=== PATIENT | female | born 1970 | race American Indian/Alaskan Native ===

== ENCOUNTER 2019-09-03 14:14 | Emergency (ER) | payer SELFPAY ==
[2019-09-03 16:19] VITALS: BP 130/72
--- NOTE | 2019-09-03 16:52 | XRay Report ---
RIGHT ANKLE 2 VIEWS INDICATION / CLINICAL INFORMATION: fall. COMPARISON: None available. FINDINGS: No fracture, dislocation or soft tissue swelling is seen within the right ankle. 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 Signer Name: Marques Tineo MD Signed: 09/03/2019 4:47 PM Workstation Name: [id number]
--- NOTE | 2019-09-03 17:43 | Emergency Department Report ---
ED Lower Extremity HPI - General Chief Complaint: Extremity Problem,Nontraumatic Stated Complaint: POSS BROKEN RIGHT FOOT Time Seen by Provider: 09/03/19 17:00 Source: patient Mode of arrival: Ambulatory Limitations: No Limitations - History of Present Illness MD Complaint: ankle injury, foot injury -: Gradual, days(s), week(s) Injury: Ankle: Right Place: home Severity: mild Worsens With: weight bearing Context: other (unsure of mechanism) Associated Symptoms: swelling, unable to bear weight - Related Data Previous Rx's Medication Instructions Recorded Last Taken Type predniSONE [Deltasone] 50 mg PO QDAY #7 tab 09/03/19 Unknown Rx traMADoL [Ultram] 50 mg PO Q6HR PRN #14 tablet 09/03/19 Unknown Rx Allergies Allergy/AdvReac Type Severity Reaction Status Date / Time No Known Allergies Allergy Verified 09/03/19 14:19 ED Review of Systems ROS: Stated complaint: POSS BROKEN RIGHT FOOT Other details as noted in HPI Comment: All other systems reviewed and negative ED Past Medical Hx - Past Medical History Previous Medical History?: No Hx Hypertension: Yes - Surgical History Past Surgical History?: No - Social History Smoking Status: Never Smoker Substance Use Type: None - Medications Home Medications: Home Medications Medication Instructions Recorded Confirmed Last Taken Type predniSONE [Deltasone] 50 mg PO QDAY #7 tab 09/03/19 Unknown Rx traMADoL [Ultram] 50 mg PO Q6HR PRN #14 tablet 09/03/19 Unknown Rx ED Physical Exam - General Limitations: No Limitations General appearance: alert, in no apparent distress - Head Head exam: Present: atraumatic, normocephalic - Eye Eye exam: Present: normal appearance - ENT ENT exam: Present: mucous membranes moist - Neck Neck exam: Present: normal inspection - Respiratory Respiratory exam: Present: normal lung sounds bilaterally. Absent: respiratory distress - Cardiovascular Cardiovascular Exam: Present: regular rate, normal rhythm. Absent: systolic murmur, diastolic murmur, rubs, gallop - GI/Abdominal GI/Abdominal exam: Present: soft, normal bowel sounds - Extremities Exam Extremities exam: Present: normal inspection, tenderness - Expanded Lower Extremity Exam Right Hip exam: Absent: abrasion Upper Leg exam: Present: normal inspection, full ROM Knee exam: Present: normal inspection, full ROM Ankle exam: Present: tenderness, swelling. Absent: laceration, ecchymosis, dislocation, erythema Foot/Toe exam: Present: tenderness - Back Exam Back exam: Present: normal inspection - Neurological Exam Neurological exam: Present: alert, oriented X3 - Psychiatric Psychiatric exam: Present: normal affect, normal mood - Skin Skin exam: Present: warm, dry, intact, normal color. Absent: rash ED Course Vital Signs 09/03/19 16:17 Temperature 98.6 F Pulse Rate 91 H Respiratory 18 Rate Blood Pressure 130/72 Blood Pressure 130/72 [Right] O2 Sat by Pulse 99 Oximetry ED Lower Extremity MDM - Radiology Data Radiology results: report reviewed Referring Physician:ED DOCPatient Name:WANG STREETERPatient ID:[id number] of :[id number]:FemaleAccession:[id number] Date:3160-80-97Aeiqsc Status:Finalized Findings [facility] [address] [place] [address] XRay Report Signed Patient: WANG STREETER MR#: [id number] 3 : 1970 Acct:[id number] Age/Sex: 49 / F ADM Date: 09/03/19 Loc: ED Attending Dr: Ordering Physician: FAMILIA CONROY MD Date of Service: 09/03/19 Procedure(s): XR ankle 2V RT Accession Number(s): [id number] cc: FAMILIA CONROY MD Fluoro Time In Minutes: RIGHT ANKLE 2 VIEWS INDICATION / CLINICAL INFORMATION: fall. COMPARISON: None available. FINDINGS: No fracture, dislocation or soft tissue swelling is seen within the right ankle. Moderate degenerative arthrosis is seen within the talonavicular and naviculocuneiform joints with mild degenerative arthrosis of tibiotalar joint. Signer Name: Marques Tineo MD Signed: 09/03/2019 4:47 PM Workstation Name: [id number] Transcribed By: TL Dictated By: Marques Tineo MD Electronically Authenticated By: Marques Tineo MD Signed Date/Time: 09/03/191646 DD/ 46 TD/TT: - Medical Decision Making Referring Physician:ED DOCPatient Name:WANG STREETERPatient ID:[id number] of :[id number]:FemaleAccession:[id number] Date:1050-03-22Emynez Status:Finalized Findings [facility] [address] [place] [address] XRay Report Signed Patient: WANG STREETER MR#: [id number] 3 : 1970 Acct:[id number] Age/Sex: 49 / F ADM Date: 09/03/19 Loc: ED Attending Dr: Ordering Physician: FAMILIA CONROY MD Date of Service: 09/03/19 Procedure(s): XR ankle 2V RT Accession Number(s): [id number] cc: ED MD RAFIQ Fluoro Time In Minutes: RIGHT ANKLE 2 VIEWS INDICATION / CLINICAL INFORMATION: fall. COMPARISON: None available. FINDINGS: No fracture, dislocation or soft tissue swelling is seen within the right ankle. Moderate degenerative arthrosis is seen within the talonavicular and naviculocuneiform joints with mild degenerative arthrosis of tibiotalar joint. Signer Name: Marques Tineo MD Signed: 09/03/2019 4:47 PM Workstation Name: [id number] Transcribed By: TL Dictated By: Marques Tineo MD Electronically Authenticated By: Marques Tineo MD Signed Date/Time: 09/03/191646 DD/ 46 TD/TT: Critical care attestation.: If time is entered above; I have spent that time in minutes in the direct care of this critically ill patient, excluding procedure time. ED Disposition Clinical Impression: Ankle pain Disposition: DC-01 TO HOME OR SELFCARE Is pt being admited?: No Does the pt Need Aspirin: No Condition: Stable Instructions: Arthralgia (ED), Ankle Exercises (GEN), RICE Therapy (ED), Ice Pack Application (ED), Crutch Instructions (ED) Prescriptions: predniSONE [Deltasone] 50 mg PO QDAY #7 tab traMADoL [Ultram] 50 mg PO Q6HR PRN #14 tablet PRN Reason: Pain Referrals: SONNY BARRAZA MD [Staff Physician] - 3-5 Days
== END 2019-09-03 17:51 | disposition home or self-care (01) ==
LOC: ED 14:14
DX: M25.571 Pain in right ankle and joints of right foot (principal); M79.89 Other specified soft tissue disorders
CPT/HCPCS: 99283